=== PATIENT | female | born 1960 ===

== ENCOUNTER 2021-01-10 06:20 | Day surgery (SDC) | payer OTHER ==
[2021-01-10] MEDS ORDERED: PERCOCET 5-3251 EACH PO (10:39)
[2021-01-10] MEDS ORDERED: NEURONTIN300 MG PO (10:40)
== END 2021-01-10 11:55 | disposition home or self-care (01) ==
LOC: CIR.AMB 06:20
PROVIDERS: ATTEND Surgery
DX: K64.4 Residual hemorrhoidal skin tags (principal); K64.8 Other hemorrhoids; Z20.822 Contact with and (suspected) exposure to COVID-19